=== PATIENT | female | born 1985 | race African-American/Black ===

== ENCOUNTER 2020-07-21 04:39 | Day surgery (SDC) | payer OTHER ==
[2020-07-20 08:36] VITALS: BMI 37.0
[~2020-07-21 04:39] MED LIST: ceFAZolin 2 GRAM PREMIX BAG IVPB ONE
--- NOTE | 2020-07-21 15:04 | HP ---
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: No: Alzheimer's, CVA, Dementia, Migraine, Multiple Sclerosis, Peripheral Neuropathy, Parkinson's, Seizure, Syncope, TIA, Vertigo, Other Cardiovascular: No: AFIB, Aneurysm, Aortic Insufficiency, Aortic Stenosis, CAD, CHF, Deep Vein Thrombosis, HTN, Hyperlipdemia, GA, Mitral Insufficiency, Mitral Stenosis, Murmur, Pulmonary Hypertension, Other Pulmonary: No: Asthma, Bronchitis, Cancer, COPD, O2 Dependent, Pneumonia, Previously Intubated, Pulmonary Embolus, Pulmonary Fibrosis, Sleep Apnea, Other Gastrointestinal: No: Ascites, Cancer, Constipation, Crohn's Disease, Divert iculitis, Diverticulosis, Esophageal Varices, Gastritis, GERD, GI Bleed, Hemorrhoids, Hiatal Hernia, Inflamatory Bowel Disease, Irritable Bowel Disease, Pancreatitis, Peptic Ulcer Disease, Ulcerative Colitis, Other Hepatobiliary: No: Cirrhosis, Cholelithiasis, Cholecystitis, Choledocholithiasis, Hepatitis A, Hepatitis B, Hepatitis C, Other Renal/: No: Renal Failure, Renal Inusuff, BPH, Cancer, Hematuria, Hemodialysis, Neurogenic Bladder, Renal Calculi, UTI, Other Reproductive: No: Ectopic , Endometriosis, Fibroids, PID, Polycystic Ovary Syndrome, Postmenopausal, Other ...LMP Comment: [id number] ...: Yes Heme/Onc: No: Anemia, B12 Deficiency, Bleeding Disorder, Cancer, Current Chemotherapy, Current Radiation Therapy, Hemochromatosis, Hypercoaguable State, Myeloproliferative Synd, Sickle Cell Disease, Sickle Cell Trait, Thrombocytopenia, Other Infectious Disease: No: AIDS, C-Diff, Herpes Zoster, HIV, MRSA, STD's, Tuberculosis, VREF, Other Psych: No: Addictions, Anxiety, Bipolar, Depression, Panic, Psychosis, Schizophrenia, Other Musculoskeletal: No: Bursitis, Chronic low back pain, Hemiparesis, Hemiplegia, Osteoarthritis, Paraplegia, Other Rheumatology: No: Fibromyalgia, Gout, Lupus, Rheumatoid Arthritis, Sarcoidosis, Vasculitis, Other ENT: No: Allergic Rhinitis, Sinusitis, Other Endocrine: No: Lenzburg's Disease, Lynn's Disease, Diabetes Insipidus, Diabetes Mellitus, Hyperparathyroidism, Hyperthyroidism, Hypothyroidism, Osteopenia, SIADH, Other Dermatology: No: Basal Cell, Cellulitis, Eczema, Melanoma, Psoriasis, Squamous Cell, Other - Past Surgical History Past Surgical History: No: None, AAA Repair, AICD, Amputation, Appendectomy, Arthrosocopy, AV Fistula/Graft, Bariatric Surgery, Breast Biopsy, Bypass, CABG, Carotid Endarterectomy, Cataract Removal, Cholecystectomy, Colectomy, Colonoscopy, Colostomy, Craniotomy, , Cystectomy, Hernia Repair, Hysterectomy, Ileal Conduit, Ileosotomy, Joint Replacement, Kidney Transplant, Laminectomy, Liver Transplant, Mastectomy, Nephrectomy, Oopherectomy, Orchiectomy, Permanent Pacemaker, Prostatectomy, Splenectomy, Stent, Thoracotomy, TURP, Tonsillectomy, Tubal Ligation, Upper Endoscopy, Valve Replacement, Vasectomy, Vein Stripping/Ligation - Advance Directives Advance Directives: Yes: Living Will - Smoking History Smoking history: Never smoked Have you smoked in the past 12 months: No - Alcohol/Substance Use Hx Alcohol Use: No History of Substance Use: reports: None - Social History Usual Living Arrangement: Yes: With Significant Other Do you think of yourself as: Straight/Heterosexual ADL: Independent History of Recent Travel: No Home Medications - Allergies Allergies/Adverse Reactions: Allergies Allergy/AdvReac Type Severity Reaction Status Date / Time ibuprofen Allergy Swelling Verified 07/21/20 13:04 - Home Medications Home Medications: Ambulatory Orders NK [No Known Home Medication] 07/20/20 Pnv No.95/Ferrous Fum/Folic AC [ Caplet] 1 each PO DAILY 07/20/20 Family Medical History Family History: Denies Review of Systems - Review of Systems Constitutional: reports: No Symptoms Eyes: reports: No Symptoms HENT: reports: No Symptoms Neck: reports: No Symptoms Cardiovascular: reports: No Symptoms Respiratory: reports: No Symptoms Gastrointestinal: reports: No Symptoms Genitourinary: reports: No Symptoms Breasts: reports: No Symptoms Reported Musculoskeletal: reports: No Symptoms Integumentary: reports: No Symptoms Neurological: reports: No Symptoms Endocrine: reports: No Symptoms Hematology/Lymphatic: reports: No Symptoms Psychiatric: reports: No Symptoms Physical Examination Vital Signs: Vital Signs Temperature 98 F 07/21/20 12:50 Pulse Rate 92 H 07/21/20 12:50 Respiratory Rate 14 07/21/20 12:50 Blood Pressure 128/61 07/21/20 12:50 O2 Sat by Pulse Oximetry (%) 100 07/21/20 12:50 Constitutional: Yes: Well Nourished, No Distress, Calm Eyes: Yes: WNL, Conjunctiva Clear, EOM Intact HENT: Yes: WNL, Atraumatic, Normocephalic Neck: Yes: WNL, Supple, Trachea Midline Cardiovascular: Yes: WNL, Regular Rate and Rhythm Respiratory: Yes: WNL, Regular, CTA Bilaterally Gastrointestinal: Yes: WNL, Normal Bowel Sounds ...Rectal Exam: Yes: WNL Renal/: Yes: WNL Breast(s): Yes: WNL Musculoskeletal: Yes: WNL Extremities: Yes: WNL Edema: No Integumentary: Yes: WNL Wound/Incision: Yes: Clean/Dry, Well Approximated Neurological: Yes: WNL, Alert, Oriented ...Motor Strength: WNL Psychiatric: Yes: WNL, Alert, Oriented Assessment/Plan for cerclage
[2020-07-21] MEDS ORDERED: ONDANSETRON 4 MG/2 ML VIAL IVPUSH PRN (15:16)
[2020-07-21] MEDS ORDERED: LACTATED RINGERS SOLUTION 1,000 ML IV SCH ×2 (15:30→17:00)
[2020-07-21] MEDS ORDERED: ACETAMINOPHEN 325 MG TABLET (FP) PO PRN (16:53)
[2020-07-21] MEDS ORDERED: IBUPROFEN 400 MG TABLET (FP) PO PRN (16:53)
--- NOTE | 2020-07-21 16:57 | OP ---
Operative Note - Note: Operative Date: 07/21/20 Pre-Operative Diagnosis: cervical incompetence Operation: julian cerclage modified Findings: no complications Post-Operative Diagnosis: Same as Pre-op Surgeon: Les Arreola Anesthesiologist/TEXTILE DESIGNER: Zach Lang Anesthesia: Spinal Estimated Blood Loss (mls): 2 (mercelene and prolene sutures applied ) Operative Report Dictated: Yes
[2020-07-21 17:41] VITALS: TEMP 98.7
[2020-07-21] MEDS ORDERED: ACETAMINOPHEN 325 MG TABLET (FP) ONE (18:23)
[2020-07-21 20:30] VITALS: BP 120/70; PULSE 74
--- NOTE | 2020-07-22 13:06 | OP ---
DATE OF OPERATION: 07/21/2020 PREOPERATIVE DIAGNOSIS: Cervical incompetence. POSTOPERATIVE DIAGNOSIS: Cervical incompetence. PROCEDURE: Modified Barrios cerclage. SURGEON: Les Arreola MD ANESTHESIA: Spinal anesthesia. ANESTHESIOLOGIST: NAZARIO Monk INDICATION: A 35-year-old female patient with a history of 1 spontaneous miscarriage at 18 weeks with SROM, premature rupture of membrane and a 2nd another baby delivered around 33 weeks after spontaneous rupture of membrane, even with a cerclage. At this time, she is 15 weeks , so is taken to the OR for a Barrios cerclage procedure. Again, patient insisted on cerclage. Patient agreed. Patient understood that she even had a cerclage last time and still broke the water bag, but this is the best resort for her instead of just a progesterone injection. DESCRIPTION OF PROCEDURE: So, patient taken to the OR, placed on the operating table in the supine position. After spinal anesthesia was obtained patient was placed in lithotomy position. The patients abdomen and pelvis prepped and draped in the usual sterile manner. A weighted speculum was placed into patients vagina and the Darling retractor was placed on the top of the suprapubic area and anterior and posterior lips of the cervix grasped with a ring forceps, elongated and massaged it, and the Mersilene suture was applied in a Barrios fashion from 12 oclock to 9 oclock to oclock to 3 oclock, 12 oclock and knot was applied at the 12 oclock position. So, good hemostasis and then we proceeded to put 2 more simple Prolene sutures to close the anterior lips and posterior lips. Good hemostasis. So, total of 3 sutures applied. No complications. Tolerated procedure well. Blood loss minimum, about 2 mL. Patient awakened from general anesthesia, transferred to recovery room in stable condition. LES ARREOLA MD [id number]
== END 2020-07-21 20:30 | disposition home or self-care (01) ==
LOC: JASU-SURG 04:39
PROVIDERS: ATTEND Obstetrics & Gynecology
PROC: 0UVC7ZZ Restriction of Cervix, Via Natural or Artificial Opening (ICD-10-PCS; principal; 2020-07-21 14:30)
DX: O34.32 Maternal care for cervical incompetence, second trimester (principal); Z3A.15 15 weeks gestation of pregnancy
CPT/HCPCS: 86900; 94760

== ENCOUNTER 2021-01-12 07:15 | Inpatient (IN) | payer OTHER ==
[2021-01-12 08:29] VITALS: BMI 39.4
[2021-01-12] MEDS ORDERED: AMPICILLIN - 2 GM in SODIUM CHLORIDE 100 ML IVPB ONE ×2 (08:41)
[2021-01-12] MEDS ORDERED: AMPICILLIN SODIUM 2 GM VIAL ONE (08:41)
[2021-01-12] MEDS ORDERED: DEXTROSE 5%-LACTATED RINGERS 1,000 ML IV SCH (08:45)
[2021-01-12] MEDS ORDERED: ELECTROLYTE-148 SOLN 1,000 ML IV SCH (08:45)
[2021-01-12] MEDS ORDERED: OXYTOCIN 30 UNITS in 0.9% NS 30 UNIT/500 ML INFUS.BAG IVPB SCH ×2 (08:45)
[2021-01-12 08:51] LABS: BASO % 0.4 % (0-2.0); EOS % 1.6 % (0-4.5); HEMATOCRIT 32.9 % (32.4-45.2); HEMOGLOBIN 10.8 GM/dL (10.7-15.3); LYMPH % 21.6 % (8-40); MCH 27.3 pg (25.7-33.7); MCHC 32.7 g/dl (32.0-36.0); MEAN CELL VOLUME 83.5 fl (80-96); MEAN PLT VOLUME 7.7 fl (7.5-11.1); MONO % 8.2 % (3.8-10.2); NEUT % 68.2 % (42.8-82.8); PLATELET COUNT 390 K/MM3 (134-434); RBC 3.94 M/mm3 (3.60-5.2); RDW 15.6 % (11.6-15.6); WHITE BLOOD COUNT 11.9 K/mm3 (4.0-10.0)
[2021-01-12 08:57] LABS: PROTHROMBIN TIME (PATIENT) 12.3 SEC (9.7-13.0)
[2021-01-12 09:00] LABS: ACTIVATED PTT 26.3 SECONDS (25.2-36.5)
[2021-01-12 09:20] LABS: CALCIUM 8.6 mg/dL (8.5-10.1)
[2021-01-12 09:21] LABS: BLOOD UREA NITROGEN 4.6 mg/dL (7-18)
[2021-01-12 09:24] LABS: CREATININE 0.5 mg/dL (0.55-1.3)
[2021-01-12] MEDS ORDERED: AMPICILLIN SODIUM 1 GM VIAL ONE (12:14)
[2021-01-12] MEDS: AMPICILLIN - 1 GM in SODIUM CHLORIDE 100 ML IVPB SCH ×2 (12:40→17:27)
[2021-01-12] MEDS ORDERED: AMPICILLIN - 1 GM in SODIUM CHLORIDE 100 ML IVPB SCH (13:00)
[2021-01-12] MEDS ORDERED: PCA PUMP NR ONE (13:44)
[2021-01-12] MEDS ORDERED: FENTANYL/BUPIVACAINE/NS/PF - PCEA - 50 ML DISP.SYRIN EP ONE (13:44)
[2021-01-12] MEDS ORDERED: NALOXONE HCL 0.4 MG/ML VIAL IVPUSH PRN (13:59)
[2021-01-12] MEDS ORDERED: FENTANYL/BUPIVACAINE/NS/PF - PCEA - 50 ML DISP.SYRIN EP SCH (14:00)
[2021-01-12] MEDS ORDERED: BUPIVACAINE HCL/PF 0.25% (2.5MG/ML) 10 ML VIAL ONE (14:05)
[2021-01-12] MEDS ORDERED: OXYTOCIN 20 UNITS in 0.9% NS 20 UNIT/1,000 ML INFUS.BAG IV ONE (14:49)
[2021-01-12] MEDS ORDERED: IBUPROFEN 600 MG TABLET (FP) PO PRN (16:59)
[2021-01-12] MEDS ORDERED: WITCH HAZEL 50% (TUCKS) 40 PAD/JAR PAD TP PRN (16:59)
[2021-01-12] MEDS ORDERED: BENZOCAINE 28 GM HEMORRHOIDAL OINTMENT TP PRN (16:59)
[2021-01-12] MEDS ORDERED: BISACODYL 10 MG SUPP.RECT RC PRN (16:59)
[2021-01-12] MEDS ORDERED: METHYLERGONOVINE MALEATE 0.2 MG/1 ML AMP IM PRN (16:59)
[2021-01-12] MEDS ORDERED: BENZOCAINE 20% 57 GM BOTTLE TP PRN (16:59)
[2021-01-12] MEDS ORDERED: OXYTOCIN 20 UNITS in 0.9% NS 20 UNIT/1,000 ML INFUS.BAG IV SCH (17:00)
[2021-01-12] MEDS: ACETAMINOPHEN 325 MG TABLET (FP) PO PRN (17:49)
[2021-01-12] MEDS: oxyCODONE HCL 5 MG TABLET PO PRN (18:41)
[2021-01-13] MEDS: oxyCODONE HCL 5 MG TABLET PO PRN (00:02)
[2021-01-13] MEDS: ACETAMINOPHEN 325 MG TABLET (FP) PO PRN ×3 (00:02→21:42)
[2021-01-13 07:30] LABS: BASO % 0.5 % (0-2.0); EOS % 1.9 % (0-4.5); HEMOGLOBIN 10.3 GM/dL (10.7-15.3); LYMPH % 20.5 % (8-40); MCH 27.3 pg (25.7-33.7); MCHC 32.3 g/dl (32.0-36.0); MEAN CELL VOLUME 84.5 fl (80-96); MEAN PLT VOLUME 7.9 fl (7.5-11.1); MONO % 8.8 % (3.8-10.2); NEUT % 68.3 % (42.8-82.8); PLATELET COUNT 358 K/MM3 (134-434); RBC 3.78 M/mm3 (3.60-5.2); RDW 15.2 % (11.6-15.6); WHITE BLOOD COUNT 16.9 K/mm3 (4.0-10.0)
[2021-01-13] MEDS: PRENATAL VITAMINS W/ FOLIC ACID TABLET (FP) PO SCH (10:33)
[2021-01-13] MEDS ORDERED: SENNOSIDES/DOCUSATE COMBO (SENNA PLUS) TABLET (UD) PO PRN (22:00)
[2021-01-14] MEDS: oxyCODONE HCL 5 MG TABLET PO PRN (02:49)
[2021-01-14] MEDS: ACETAMINOPHEN 325 MG TABLET (FP) PO PRN (02:50)
[2021-01-14] MEDS: PRENATAL VITAMINS W/ FOLIC ACID TABLET (FP) PO SCH (09:00)
[2021-01-14 09:16] VITALS: BP 128/80; PULSE 88; TEMP 97.9
== END 2021-01-14 12:15 | disposition home or self-care (01) | DRG 807 ==
LOC: JLDR 07:15 → J3W 17:40
PROVIDERS: ADMIT Obstetrics & Gynecology; ATTEND Obstetrics & Gynecology
PROC: 3E033VJ Introduction of Other Hormone into Peripheral Vein, Percutaneous Approach (ICD-10-PCS; principal; 2021-01-12)
PROC: 10E0XZZ Delivery of Products of Conception, External Approach (ICD-10-PCS; 2021-01-12)
DX: O10.92 Unspecified pre-existing hypertension complicating childbirth (principal); Z37.0 Single live birth; Z3A.39 39 weeks gestation of pregnancy
CPT/HCPCS: 36415; 59409; 80048; 85025; 85610; 85730; 86780; 86850; 86900; 86901